=== PATIENT | female | born 1935 | race Caucasian/White ===

== ENCOUNTER 2017-02-02 02:01 | Inpatient (IN) | payer MEDICARE, OTHER ==
[~2017-02-02] VITALS: Ht 154.9 cm; Wt 69.0 kg
[2017-02-02 03:05] LABS: HEMOGLOBIN 4.1 gm/dl (12.3-15.3); RED BLOOD COUNT 2.15 M/UL (4.00-5.10); WHITE BLOOD COUNT 11.4 K/UL (4.5-11.0)
[2017-02-02 03:22] LABS: BUN/CREATININE RATIO 29 (0-10)
[2017-02-02] MEDS ORDERED: ADVAIR 250-501 EACH INH (05:23)
[2017-02-02] MEDS ORDERED: ASPIRIN 325MG325 MG PO (05:24)
[2017-02-02] MEDS ORDERED: CLOPIDOGREL75 MG PO (05:24)
[2017-02-02] MEDS ORDERED: COREG 3.125M3.125 MG PO (05:24)
[2017-02-02] MEDS ORDERED: LISINOPRIL5 MG PO (05:25)
[2017-02-02] MEDS ORDERED: LASIX 40 MG TAB40 MG PO (05:25)
[2017-02-02] MEDS ORDERED: CRESTOR 10 MG T10 MG PO (05:26)
[2017-02-02] MEDS ORDERED: RANEXA500 MG PO (05:26)
[2017-02-02] MEDS ORDERED: NOVOLIN 70100 UNIT/1 SQ (05:30)
[2017-02-02 06:21] LABS: RED BLOOD COUNT 4.52 M/UL (4.00-5.10); WHITE BLOOD COUNT 15.2 K/UL (4.5-11.0)
[2017-02-02 06:22] LABS: HEMOGLOBIN 10.7 gm/dl (12.3-15.3)
[2017-02-03 03:51] LABS: WHITE BLOOD COUNT 12.4 K/UL (4.5-11.0)
[2017-02-03 04:03] LABS: RED BLOOD COUNT 3.76 M/UL (4.00-5.10)
[2017-02-04 04:42] LABS: BUN/CREATININE RATIO 25 (0-10)
--- NOTE | 2017-02-05 15:06 | NUR ---
ORIENTED PATIENT TO ROOM AND FLOOR, AGREE WITH PREVIOUS STEEL PLACER.
[2017-02-06 06:06] LABS: HEMOGLOBIN 9.1 gm/dl (12.3-15.3); RED BLOOD COUNT 3.96 M/UL (4.00-5.10); WHITE BLOOD COUNT 7.6 K/UL (4.5-11.0)
[2017-02-06 06:18] LABS: BUN/CREATININE RATIO 19 (0-10)
[2017-02-06] MEDS ORDERED: COREG 3.125M3.125 MG PO (12:27)
[2017-02-06] MEDS ORDERED: LANOXIN TAB0.125 MG PO (12:28)
[2017-02-06] MEDS ORDERED: PROTONIX40 MG PO ×2 (12:29→12:33)
== END 2017-02-06 10:30 | disposition home or self-care (01) | DRG 871 ==
LOC: ER1 02:01 → M/S 03:04 → ZEROF 03:04 → CCU 03:04 → M/S 02-05 14:52
PROVIDERS: Hospitalist; Internal Medicine; Internal Medicine Gastroenterology; Specialist/Technologist Athletic Trainer; ADMIT Internal Medicine
PROC: 30233N1 Transfusion of Nonautologous Red Blood Cells into Peripheral Vein, Percutaneous Approach (ICD-10-PCS; 2017-02-02)
PROC: 05HM33Z Insertion of Infusion Device into Right Internal Jugular Vein, Percutaneous Approach (ICD-10-PCS; 2017-02-02)
PROC: 0DJ08ZZ Inspection of Upper Intestinal Tract, Via Natural or Artificial Opening Endoscopic (ICD-10-PCS; principal; 2017-02-05 19:00)
DX: A41.51 Sepsis due to Escherichia coli [E. coli] (principal); G93.40 Encephalopathy, unspecified; R57.1 Hypovolemic shock; K25.4 Chronic or unspecified gastric ulcer with hemorrhage; J96.01 Acute respiratory failure with hypoxia; D62 Acute posthemorrhagic anemia; N39.0 Urinary tract infection, site not specified; E44.0 Moderate protein-calorie malnutrition; D50.9 Iron deficiency anemia, unspecified; Z68.22 Body mass index [BMI] 22.0-22.9, adult; R56.9 Unspecified convulsions; E11.9 Type 2 diabetes mellitus without complications; I95.9 Hypotension, unspecified; Z91.81 History of falling; I25.10 Atherosclerotic heart disease of native coronary artery without angina pectoris; I35.0 Nonrheumatic aortic (valve) stenosis; I25.2 Old myocardial infarction; Z88.5 Allergy status to narcotic agent; Z79.899 Other long term (current) drug therapy; Z79.02 Long term (current) use of antithrombotics/antiplatelets; Z79.82 Long term (current) use of aspirin; Z79.4 Long term (current) use of insulin; Z95.1 Presence of aortocoronary bypass graft; F17.210 Nicotine dependence, cigarettes, uncomplicated; B96.20 Unspecified Escherichia coli [E. coli] as the cause of diseases classified elsewhere; Z91.14 Patient's other noncompliance with medication regimen; I25.5 Ischemic cardiomyopathy; E78.5 Hyperlipidemia, unspecified; R42 Dizziness and giddiness; R53.1 Weakness; R55 Syncope and collapse; Z82.49 Family history of ischemic heart disease and other diseases of the circulatory system; Z95.810 Presence of automatic (implantable) cardiac defibrillator; I27.2 Other secondary pulmonary hypertension; Z66 Do not resuscitate; K26.9 Duodenal ulcer, unspecified as acute or chronic, without hemorrhage or perforation
CPT/HCPCS: ECHO; 36415; 36430; 36600; 51702; 70450; 71010; 71250; 80048; 80053; 80307; 81001; 82550; 82553; 82803; 82962; 83540; 83550; 83735; 83874; 83880; 84100; 84439; 84443; 84484; 85014; 85018; 85025; 85027; 85610; 85730; 86850; 86900; 86901; 86920; 87077; 87086; 87186; 93005; 93306; 96374; 96375; 99291; 99292; J0696; J1160; J1265; J1720; J2060; J2250; J7030; J7040; J7050; P9016